=== PATIENT | male | born 1970 | race Caucasian/White ===

== ENCOUNTER 2017-10-14 13:51 | Observation (INO) | payer BC ==
[~2017-10-14] VITALS: Ht 182.9 cm; Wt 127.0 kg
[~2017-10-14 13:51] MED LIST: FENO145 PO; IBUP800 PO; NAPR250 PO; OMEP20ER PO; OXYACE5T PO; RABE20 PO; RXOXYACE PO
[2017-10-14] MEDS ORDERED: LISI20 PO (14:10)
[2017-10-14 14:35] LABS: BASOPHILS ABSOLUTE AUTO 0.02 K/mm3 (0.00-0.23); BASOPHILS PERCENT AUTO 0 % (0-2); EOSINOPHILS PERCENT AUTO 2 % (0-6); Hematocrit 40.8 % (37.0-53.0); Hemoglobin 14.4 g/dL (13.5-17.5); IMMATURE GRAN ABSOLUTE AUTO 0.01 K/mm3 (0.00-0.10); IMMATURE GRAN PERCENT AUTO 0 % (0-1); LYMPHOCYTES ABSOLUTE AUTO 2.11 K/mm3 (0.84-5.20); LYMPHOCYTES PERCENT AUTO 42 % (21-46); MONOCYTES ABSOLUTE AUTO 0.24 K/mm3 (0.16-1.47); MONOCYTES PERCENT AUTO 5 % (4-13); Mean Corpuscular HGB 30.8 pg (26.0-34.0); Mean Corpuscular HGB Conc 35.3 g/dL (31.5-36.5); Mean Corpuscular Volume 87 fL (80-100); Mean Platelet Volume 11.2 fL (9.1-12.4); NEUTROPHILS ABSOLUTE AUTO 2.54 K/mm3 (1.96-9.15); NEUTROPHILS PERCENT AUTO 51 % (41-73); Platelet Count 205 K/mm3 (150-400); RDW Coefficient Variation 12.7 % (11.7-14.2); RDW Standard Deviation 40.2 fL (35.1-46.3); Red Blood Cell Count 4.68 M/mm3 (4.30-5.90); White Blood Cell Count 5.02 K/mm3 (4.00-11.30)
[2017-10-14 14:49] LABS: Alanine Aminotransfer (ALT/SGP 60 U/L (12-78); Albumin, Blood 3.9 g/dL (3.4-5.0); Alk Phos 48 U/L (50-136); Anion Gap 9 mmol/L (6-16); Aspartate Aminotrans (AST/SGOT 31 U/L (12-37); Bilirubin, Total 1.4 mg/dL (0.1-1.0); Blood Urea Nitrogen 12 mg/dL (8-24); Bun/Creatinine Ratio 11.5 (12.0-20.0); CO2, Blood 25 mmol/L (21-32); Calcium, Blood 9.2 mg/dL (8.5-10.1); Chloride, Blood 106 mmol/L (98-108); Creatinine, Blood 1.04 mg/dL (0.60-1.20); Globulin, Blood 3.9 g/dL (2.2-4.0); Glomerular Filtration Rate >60 (60-); Glucose, Blood 143 mg/dL (70-99); Potassium, Blood 3.2 mmol/L (3.5-5.5); Sodium, Blood 140 mmol/L (136-145); Total Protein, Blood 7.8 g/dL (6.4-8.2); Troponin I <0.015 ng/mL (0.000-0.040)
[2017-10-15] MEDS ORDERED: ZESTORETIC 20-121 EA PO (07:39)
[2017-10-17 04:07] LABS: BASOPHILS ABSOLUTE AUTO 0.01 K/mm3 (0.00-0.23); BASOPHILS PERCENT AUTO 0 % (0-2); EOSINOPHILS ABSOLUTE AUTO 0.08 K/mm3 (0.00-0.68); EOSINOPHILS PERCENT AUTO 1 % (0-6); Hematocrit 33.9 % (37.0-53.0); Hemoglobin 11.6 g/dL (13.5-17.5); IMMATURE GRAN ABSOLUTE AUTO 0.01 K/mm3 (0.00-0.10); IMMATURE GRAN PERCENT AUTO 0 % (0-1); LYMPHOCYTES ABSOLUTE AUTO 2.29 K/mm3 (0.84-5.20); LYMPHOCYTES PERCENT AUTO 36 % (21-46); MONOCYTES ABSOLUTE AUTO 0.38 K/mm3 (0.16-1.47); MONOCYTES PERCENT AUTO 6 % (4-13); Mean Corpuscular HGB 30.9 pg (26.0-34.0); Mean Corpuscular HGB Conc 34.2 g/dL (31.5-36.5); Mean Corpuscular Volume 90 fL (80-100); Mean Platelet Volume 11.5 fL (9.1-12.4); NEUTROPHILS ABSOLUTE AUTO 3.58 K/mm3 (1.96-9.15); NEUTROPHILS PERCENT AUTO 56 % (41-73); Platelet Count 150 K/mm3 (150-400); RDW Coefficient Variation 12.9 % (11.7-14.2); RDW Standard Deviation 42.4 fL (35.1-46.3); Red Blood Cell Count 3.76 M/mm3 (4.30-5.90); White Blood Cell Count 6.35 K/mm3 (4.00-11.30)
[2017-10-17 04:27] LABS: Alanine Aminotransfer (ALT/SGP 56 U/L (12-78); Albumin, Blood 3.1 g/dL (3.4-5.0); Albumin/Globulin Ratio 0.9 (0.8-1.8); Alk Phos 40 U/L (50-136); Anion Gap 5 mmol/L (6-16); Aspartate Aminotrans (AST/SGOT 26 U/L (12-37); Bilirubin, Total 1.1 mg/dL (0.1-1.0); Blood Urea Nitrogen 12 mg/dL (8-24); Bun/Creatinine Ratio 12.3 (12.0-20.0); CO2, Blood 28 mmol/L (21-32); Calcium, Blood 8.3 mg/dL (8.5-10.1); Chloride, Blood 107 mmol/L (98-108); Creatinine, Blood 0.98 mg/dL (0.60-1.20); Globulin, Blood 3.4 g/dL (2.2-4.0); Glomerular Filtration Rate >60 (60-); Glucose, Blood 110 mg/dL (70-99); Potassium, Blood 3.4 mmol/L (3.5-5.5); Sodium, Blood 140 mmol/L (136-145); Total Protein, Blood 6.5 g/dL (6.4-8.2)
== END 2017-10-17 11:10 | disposition home or self-care (01) ==
LOC: ER 13:51 → SURS 13:52
PROVIDERS: Physician Assistant; Surgery
PROC: BF12YZZ Fluoroscopy of Gallbladder using Other Contrast (ICD-10-PCS; 2017-10-15)
PROC: 0FT44ZZ Resection of Gallbladder, Percutaneous Endoscopic Approach (ICD-10-PCS; principal; 2017-10-15 14:45)
DX: K80.12 Calculus of gallbladder with acute and chronic cholecystitis without obstruction (principal); I10 Essential (primary) hypertension; G47.33 Obstructive sleep apnea (adult) (pediatric); R11.2 Nausea with vomiting, unspecified; K21.9 Gastro-esophageal reflux disease without esophagitis; Z79.899 Other long term (current) drug therapy
CPT/HCPCS: 36415; 71275; 74175; 74300; 80053; 83690; 83880; 84484; 85025; 88304; 93005; 93010; 96361; 96365; 96375; 99285; C1729; J0295; J0330; J1100; J1885; J2250; J2405; J2710; J3010; J7030; J7120; Q9967

== ENCOUNTER 2020-04-23 15:13 | Emergency (ER) | payer OTHER, BC ==
[~2020-04-23] VITALS: Ht 182.9 cm; Wt 136.1 kg
[~2020-04-23 15:13] MED LIST changes: +LISI20 PO; +ZESTORETIC 20-121 EA PO
[2020-04-25 08:08] LABS: HIV SCREEN 4TH GENERATION WRFX Non Reactive (Non Reactive)
[2020-04-25 09:09] LABS: HCV ANTIBODY <0.1 (0.0-0.9)
[2020-04-25] MEDS ORDERED: MONTELUKAST SOD10 M1 PO (14:08)
[2020-04-25] MEDS ORDERED: ACET500 PO (14:08)
== END 2020-04-23 15:45 | disposition home or self-care (01) ==
LOC: ER 15:13
PROVIDERS: Physician Assistant
DX: Z77.21 Contact with and (suspected) exposure to potentially hazardous body fluids (principal); I10 Essential (primary) hypertension; K21.9 Gastro-esophageal reflux disease without esophagitis; Z79.899 Other long term (current) drug therapy
CPT/HCPCS: 36415; 84460; 86317; 86703; 86803; 87340; 87389; 99283

== ENCOUNTER 2020-04-27 05:59 | Day surgery (SDC) | payer BC ==
[~2020-04-27 05:59] MED LIST changes: +ACET500 PO; +MONTELUKAST SOD10 M1 PO
--- NOTE | 2020-04-27 08:32 | NUR ---
04/27/20 0832 Aggie Corbett History, Chart, Medications and Allergies reviewed before start of procedure. MONITOR INTACT WITH CONTINUOUS PULSE OXIMETRY AND INTERMITTENT BP. 3-LEAD EKG REVIEWED WITH PHYSICIAN PRIOR TO START OF PROCEDURE. DR. CHANDNI BLANTON. DONE ON OR 2, HEMORRHOIDECTOMY TO FOLLOW.
--- NOTE | 2020-04-27 09:46 | NUR ---
PT TO STEP. DENIES PAIN OR NAUSEA. GAUZE IN PLACE IN BUTTOCKS, NO DRAINAGE NOTED.
--- NOTE | 2020-04-27 10:23 | NUR ---
WRITEEN AND VERBAL D/C INSTRUCTIONS GIVEN TO PT WITH STATED UNDERSTANDING.
--- NOTE | 2020-04-27 10:38 | NUR ---
PB ELEVATED. PT DENIES COMPLAINTS. DR. FIGUEROA INFORMED OF ELEVATED BP. PT STATES HE SKIPPED LAST NIGHTS BP MED, WILL TAKE MEDS WHEN HE GETS HOME AND HAS A WAY TO MONITOR BP AT HOME. DR. FIGUEROA STATES OK TO SEND PT HOME.
== END 2020-04-27 10:40 | disposition home or self-care (01) ==
LOC: ORSCMMR 05:59 → ORD 07:30 → ORSCMMR 10:40
PROVIDERS: Surgery
PROC: 06BY0ZC Excision of Hemorrhoidal Plexus, Open Approach (ICD-10-PCS; principal; 2020-04-27 08:45)
PROC: 0DJD8ZZ Inspection of Lower Intestinal Tract, Via Natural or Artificial Opening Endoscopic (ICD-10-PCS; principal; 2020-04-27 08:45)
DX: K64.4 Residual hemorrhoidal skin tags (principal); Z12.11 Encounter for screening for malignant neoplasm of colon; K57.30 Diverticulosis of large intestine without perforation or abscess without bleeding; G47.33 Obstructive sleep apnea (adult) (pediatric); E88.81 Metabolic syndrome and other insulin resistance; Z79.899 Other long term (current) drug therapy
CPT/HCPCS: 46999; G0121; 88304; J1100; J1885; J2250; J2405; J2704; J3010; J7120